=== PATIENT | male | born 1980 | race Caucasian/White ===

== ENCOUNTER 2020-03-11 22:04 | Emergency (ER) | payer MEDICAID, SELFPAY ==
[2020-03-11 22:06] VITALS: BP 134/82; PULSE 103; RESP 20; TEMP 36.6; O2SAT 95
--- NOTE | 2020-03-11 22:08 | W.ED.GENAD ---
Discharge Plan Disposition Patient Disposition: HOME Condition: Good Discharge Details Chief Complaint: Cellulitis Clinical Impression: Wound infection, posttraumatic Primary Care Provider: None,None ED Provider: Booker Lopez Meds and New Rx's Prescriptions: New cephalexin 500 mg tablet 500 mg PO Q8H Qty: 20 RF: 0 Discharge Instructions Instructions: Wound Infection (ED) Additional Instructions: Continue to keep wound clean and dry. Antibiotic as directed. Acetaminophen or ibuprofen as needed. Should be better in a couple of days but be sure to finish your antibiotic. Return to the if continued worsening of pain, swelling, redness, fever. Referrals: Primary Care Provider [Outside] Medical Decision Making Patient with an infected abrasion. No evidence of joint involvement. No bony tenderness. Will start on cephalexin. Continue good wound care. Return to ED for worsening infection otherwise follow-up with primary care if not improving next week. HPI General Mode of arrival: ambulatory. Date/Time Provider Initiated Documentation: 03/11/20 22:08. Limitations to Documentation: no limitations. Information obtained by: patient and RN notes reviewed. HPI Narrative: Patient presents to ED with increasing redness and swelling to a scrape he sustained to his left elbow a few days ago. He denies any fever. He has normal range of motion and strength. He has been cleaning the wound and keeping it covered but it is become red and swollen and more painful. Related Data Home Medications Medication Instructions Recorded Confirmed cephalexin 500 mg PO Q8H #20 tab 03/11/20 Previous Rx's Medication Instructions Recorded cephalexin 500 mg PO Q8H #20 tab 03/11/20 Allergies Allergy/AdvReac Type Severity Reaction Status Date / Time No Known Allergies Allergy Unverified 03/11/20 22:09 Review of Systems Constitutional Constitutional: Denies fever(s) Cardiovascular Cardiovascular: Denies dyspnea Respiratory Respiratory: Denies cough and Denies dyspnea Musculoskeletal Musculoskeletal: Denies arthralgias and Denies limited range of motion Integumentary/Breasts Skin/Breast: Reports erythema and Reports wounds [facility] Medical History No active medical problems (Acute) Surgical History No significant past surgical history (Acute) Social History Smoking/Tobacco Use Status: Current every day Tobacco Type: cigarettes Alcohol Intake: never Drug use: Never Substance use type: does not use Do you feel safe at home: Yes Do you feel safe in your relationship?: Yes Exam Const General: cooperative, comfortable and no acute distress Orientation: alert and oriented x3 Resp Effort & Inspection: normal respiratory effort Skin Trauma: abrasion (1 x 4 cm abrasion over left elbow) Other: Surrounding erythema and swelling around abrasion. Warm to touch. Minor tenderness. Extrem Left upper extremity: full ROM, no joint enlargement and elbow/forearm Details: normal ROM
== END 2020-03-11 22:30 | disposition home or self-care (01) ==
LOC: ER 22:23
PROVIDERS: Emergency Provider Emergency Medicine
DX: S50.312A Abrasion of left elbow, initial encounter (principal); L08.9 Local infection of the skin and subcutaneous tissue, unspecified; X58.XXXA Exposure to other specified factors, initial encounter
CPT/HCPCS: 99283

== ENCOUNTER 2023-05-04 02:14 | Emergency (ER) | payer MEDICAID, SELFPAY ==
[2023-05-04] VITALS (8 sets, daily range): BP systolic 147–165; BP diastolic 58–136; PULSE 103–110; RESP 18; TEMP 37.1–37.3; O2SAT 96–99
--- NOTE | 2023-05-04 03:17 | ED.GENADUL_ITS ---
Discharge Plan Disposition Patient Disposition: Home Discharge Details Clinical Impression: Otitis media of both ears Primary Care Provider: None,None ED Provider: Gisselle Josue Home Meds and New Rx's Prescriptions: New amoxicillin 500 mg capsule 500 mg PO TID Qty: 30 0RF Discontinued cephalexin 500 mg tablet 500 mg PO Q8H Qty: 20 0RF Discharge Instructions Instructions: Ear Infection (ED) Additional Instructions: Try the amoxicillin to see if your hearing and the ringing in your ears improves (this may help your throat as well). We will have primary care call you for a follow up appt. It is possible that the ear issue is related to your recent bout of Covid. Return to ED for difficulty breathing, chest pain, inability to swallow, any other concerns. Tylenol and/or ibuprofen as needed for pain. Discharge Data Discharge Date/Time-TO BE ENTERED AT DEPARTURE: 05/04/23 03:41 Medical Decision Making Patient was extremely fidgety when his blood pressure was being taken and had a hard time sitting still. I suspect the initial read was not accurate. He was mildly tachycardic with a temp of 99.1 just prior to discharge. I suspect he may have a fever. I gave him amoxicillin which should treat bacterial pharyngitis and otitis media. We also talked about some of the odd symptoms that persist after COVID-19. It is possible that his tinnitus and decreased hearing are related to the COVID. Patient does not have a primary care doc and I will have primary care call him for follow-up appointment. He will return to the ER for difficulty breathing, chest pain, or any other concerns. Medical Records Medical records reviewed: Yes I reviewed the patient's medical records. HPI General Date/Time Provider Initiated Documentation: 05/04/23 03:16 . HPI Narrative: This 42-year-old male patient presents with a chief complaint of bilateral ear pain, ringing, and sore throat. Patient states that a month or so ago he had COVID-19. He states that a week after this he began having tinnitus and decreased hearing. He denies dizziness or vertigo. Over the past day or 2 he has also had a sore throat and feels more pain in his ears. He feels like he has phlegm in his throat at times. He denies fever, cough, or other URI symptoms. He does not have swollen glands. There is no chest pain or difficulty breathing. Related Data Home Medications Medication Instructions Recorded Confirmed amoxicillin 500 mg capsule 500 mg PO TID #30 caps 05/04/23 Previous Rx's Medication Instructions Recorded amoxicillin 500 mg capsule 500 mg PO TID #30 caps 05/04/23 Allergies Allergy/AdvReac Type Severity Reaction Status Date / Time No Known Allergies Allergy Unverified 03/11/20 22:09 General Stated Complaint: EarProblem CELESTINA: 4 Review of Systems Constitutional Constitutional: Denies chills, Denies fever(s), Denies headache(s) and Denies weakness Eyes Eyes: Denies diplopia and Reports other (no redness) ENT Ears, Nose, Mouth, and Throat: Denies vertigo, Denies dizziness, Reports otalgia, Denies headache(s), Denies nasal congestion, Denies nasal discharge, Denies neck pain and Reports sore throat Cardiovascular Cardiovascular: Denies chest pain, Denies palpitations and Denies dyspnea Respiratory Respiratory: Denies cough and Denies dyspnea Gastrointestinal Gastrointestinal: Denies abdominal pain, Denies diarrhea, Denies nausea and Denies vomiting Genitourinary Genitourinary: Denies difficulty urinating and Denies dysuria Musculoskeletal Musculoskeletal: Denies myalgias, Denies muscle weakness, Denies neck pain, Denies numbness and Reports other (edema) Integumentary/Breasts Skin/Breast: Denies change in pigmentation and Denies rash Neurologic Neurologic: Denies vertigo, Denies dizziness, Denies headache(s), Denies numbness and Denies weakness Endocrine Endocrine: Denies palpitations PFSH All Active Problems Otitis media of both ears (Acute) Medical History No active medical problems Surgical History No significant past surgical history Social History Smoking/Tobacco Use Status: Current every day Tobacco Type: cigarettes Smoking risk assessment performed?: Yes Alcohol Intake: never Drug use: Never Substance use type: does not use Do you feel safe at home: Yes Do you feel safe in your relationship?: Yes Exam Const General: no acute distress, well developed, well groomed and not in acute distress Nutritional Appearance: well nourished Orientation: alert and oriented x3 HENMT Head: normocephalic and atraumatic Ears: external ears normal, TM's abnormal bilaterally (B TMs dull with no light relex) and other (no pain with pinna traction) Mouth: oropharynx normal and moist mucous membranes Throat: posterior oropharynx abnormal (erythematous but no exudate) Eyes Conjunctivae: conjunctivae normal Neck Neck: full ROM, supple and no lymphadenopathy noted Chest Chest: normal inspection of the chest Resp Effort & Inspection: normal respiratory effort Auscultation: clear to auscultation bilaterally Cardio Rate: regular rate Rhythm: regular rhythm Heart Sounds: no murmurs and no rubs GI Inspection: normal to inspection and obesity Palpation: soft, nontender and other (non distended) Auscultation: normal bowel sounds Skin General skin exam: no rashes or lesions noted and other (pink, warm, dry) Neuro General: patient alert, patient awake and patient oriented x3 Speech: speech normal Motor: other (HERNANDEZ) Sensory Exam: no sensory deficits noted Extrem General: normal to inspection, full ROM and pedal edema present Psych Mental Status: mental status grossly normal Speech and Movement: speech and movement normal Affect: normal affect Course Vital Signs Vital signs: Vital Signs Temperature 37.1 C 05/04/23 02:23 Pulse 110 H 05/04/23 02:23 Respiratory Rate 18 05/04/23 02:23 Blood Pressure 165/136 H 05/04/23 02:23 Pulse Oximetry 96 05/04/23 02:23 Temperature 37.1 C 05/04/23 02:23 Pulse 110 H 05/04/23 02:23 Respiratory Rate 18 05/04/23 02:23 Respiratory Effort Normal 05/04/23 02:26 Blood Pressure 165/136 H 05/04/23 02:23 Blood Pressure Position Sitting 05/04/23 02:23 Pulse Oximetry 96 05/04/23 02:23 Pain Level 5 05/04/23 02:23
[2023-05-04] MEDS: Amoxicillin 500 MG CAP PO (03:25)
== END 2023-05-04 03:41 | disposition home or self-care (01) ==
PROVIDERS: Emergency Provider Emergency Medicine
DX: H66.93 Otitis media, unspecified, bilateral (principal)
CPT/HCPCS: 99283; 99284

== ENCOUNTER 2024-06-28 20:27 | Inpatient (IN) | payer MEDICAID, SELFPAY ==
[2024-06-28] VITALS (17 sets, daily range): BP systolic 97–150; BP diastolic 50–90; PULSE 91–166; RESP 16–24; TEMP 36.6; O2SAT 86–98
--- NOTE | 2024-06-28 20:15 | RT.EKG_ITS ---
APPROVED REPORT Exam: Resting ECG Reason for Exam: OD Patient Location: E HR:116 bpm ECG Measurements Heart Rate 116 AXIS FL [id number] P [id number] QRSd 99 QRS 62 QT 330 T 13 QTc 460 Conclusion Atrial fibrillation...? atrial activity no ST segment or T wave abnormalitites to suggest occlusive AL
[2024-06-28 20:44] LABS: Abs Immature Grans 0.17 10^3/uL (0.0-0.06); BE (Venous) -2 mmol/L (-2-3); HCO3 (Venous) 26 mmol/L (23-28); HCT 45.2 % (40.0-50.0); HGB 14.6 g/dL (13.5-17.5); MCH 28.5 pg (27.0-33.0); MCHC 32.3 % (32.0-36.0); MCV 88 fL (80-95); O2 Sat (Venous) 33 %; Platelet Count 293 10^3/uL (130-400); RBC 5.13 10^6/uL (4.36-5.78); RDW 14.4 % (11.8-14.1); RDW-SD 46.6 fL; TCO2 (Venous) 24 mmol/L (24-29); WBC 24.99 10^3/uL (4.4-10.8); pCO2 (Venous) 59 mmHg (41-51); pH (Venous) 7.25 (7.31-7.41); pO2 (Venous) 21 mmHg
[2024-06-28 20:52] LABS: Absolute Lymphocyte Count 2.25 10^3/uL (1.2-3.4); Absolute Neutrophil Count 21.99 10^3/uL (1.2-6.7); Bands % 2 %
[2024-06-28 20:53] LABS: Absolute Monocyte Count 0.75 10^3/uL (0.1-0.8); Diff Comment Manual Differential; RBC Morphology Normal
[2024-06-28 21:05] LABS: PTT Activated 29.6 sec (23.6-32.8); Prothrombin Time 10.3 sec (9.1-11.1)
[2024-06-28] MEDS: Ondansetron 4 MG/2 ML VIAL IVP (21:10)
[2024-06-28 21:16] LABS: ALT 44 U/L (16-63); AST 25 U/L (15-37); Albumin 3.5 g/dL (3.4-5.0); Alkaline Phosphatase 157 U/L (46-116); Anion Gap 9.4 mmol/L (3-11); BUN 16 mg/dL (7-18); Bilirubin, Total 0.13 mg/dL (0.2-1.0); CO2 28.6 mmol/L (21.0-32.0); CREATININE 1.5 mg/dL (0.70-1.30); Chloride 107 mmol/L (98-107); Estimated GFR 59.61 (mL/min/1.73m2); Glucose 132 mg/dL (74-106); NT-proBNP 119 pg/mL (<300); Potassium 5.3 mmol/L (3.5-5.1); Sodium 145 mmol/L (136-145); TSH (W/Ref FT4) 1.77 uIU/mL (0.36-3.74); Total Protein 7.8 g/dL (6.4-8.2); Troponin I 41 ng/L (<or=76)
[2024-06-28 21:24] LABS: D-Dimer 536 ng/mlFEU (<500)
--- NOTE | 2024-06-28 21:27 | NUR.NOTE ---
Nursing Note: Pt SpO2 ~90% on RA. Placed on 3L NC.
[2024-06-28 21:36] LABS: *AMPHETAMINES SCREEN URINE Negative (Negative); *BENZODIAZEPINES SCREEN URINE Positive (Negative); Cocaine Screen,Urine Positive (Negative)
[2024-06-28 21:37] LABS: *BARBITURATES SCREEN URINE Negative (Negative); Cannabinoids THC Positive (Negative); OPIATES URINE SCREEN Negative (Negative); Tricyclic Antidepressants Negative (Negative)
--- NOTE | 2024-06-28 22:02 | DI.RAD_ITS ---
Exam(s) XR CHEST 2V PA LATERAL EXAM: XR CHEST 2V PA LATERAL CLINICAL HISTORY: afib TECHNIQUE: 2D digital imaging was performed. Two views. COMPARISON: No exams were available for comparison FINDINGS: Exam is limited by under penetration. HEART: normal size. Aorta: Not dilated. PULMONARY VASCULATURE: Normal. MEDIASTINUM: Unremarkable. LUNGS: Clear. PLEURAL SPACE: No pleural effusion or pneumothorax. BONE:Unremarkable for age. SOFT TISSUES: Unremarkable. IMPRESSION: No acute abnormality. DATA REPOSITORY: RADIATION DOSE DELIVERED:
[2024-06-28] MEDS: Omnipaque 350 MG/ML 100 ML BTL 90 ML IJ (22:23)
[2024-06-28] MEDS: Normal Saline - Diluent 50 ML VIAL IJ (22:24)
--- NOTE | 2024-06-28 22:25 | DI.CT_ITS ---
Exam(s) CT CHEST PE CTA EXAM: CT CHEST PE CTA CLINICAL HISTORY: hypoxia, tachycardia afib, + dimer. TECHNIQUE: Imaging Protocol: Axial CT angiography was performed with multi-slice acquisition and mu lti-planar reconstructions as well as axial, coronal and sagittal MIP reconstructions. Computer aided detection (CAD) was utilized. CONTRAST MATERIAL: Intravenous: Omnipaque 350 Contrast volume:90 ml COMPARISON: CR,XR XR CHEST 2V PA LATERAL from 06/28/2024 FINDINGS: Exam limited by image noise secondary check to technique and patient body habitus. Pulmonary Arteries: No evidence of filling defect to suggest pulmonary emboli. Mediastinum and Olamide: Mildly enlarged, reactive lymph nodes in the subcarinal region. Pulmonary parenchyma: Bilateral upper and lower lobe patchy nodular infiltrates, greatest at the righ t upper and right lower lobe. No dominant measurable mass. Pleura: No effusion or pneumothorax. Heart: The heart is not dilated. No coronary artery calcifications are seen. Aorta: Thoracic aorta non-dilated. No dissection. Upper abdomen: Celiac axis lymph node measuring 1.2 cm in maximal dimension. Bones: Prominent calcification in the anterior longitudinal ligament in the lower thoracic region. M ild degenerative disc changes. Tubes, Catheters, and Lines: None Soft tissues: Unremarkable. IMPRESSION: Bilateral bronchopneumonia, right greater than left. No evidence of pulmonary emboli. RADIATION DOSE DELIVERED: Total DLP DATA REPOSITORY: All CT scans at this facility are submitted to the National Radiology Data Registry (NRDR) Dose Index Registry (DIR) with the [employer] (A[employer]). RADIATION OPTIMIZATION: All CT scans at this facility use at least one of these dose optimization te chniques: automated exposure control; mA and/or kV adjustment per patient size (includes targeted exa ms where dose is matched to clinical indication); or iterative reconstruction.
[2024-06-28 22:26] LABS: Troponin I 105 ng/L (<or=76)
--- NOTE | 2024-06-28 23:02 | ED.GENADUL_ITS ---
Discharge Plan Disposition Patient Disposition: Admit to [facility] Condition: Good Discharge Details Chief Complaint: OD/Poison Clinical Impression: Acute hypoxic respiratory failure, Pneumonia, A-fib, Non-ST elevation MT (NSTEMI), Overdose, Sepsis Primary Care Provider: None,None ED Provider: Viki Allen Home Meds and New Rx's Prescriptions: No Action No Known Home Meds HPI General Mode of arrival: EMS . Date/Time Provider Initiated Documentation: 06/28/24 20:34 . Limitations to Documentation: no limitations . Information obtained by: patient, family and EMS . HPI Narrative: 43yo M with no prior medical history presenting via EMS for unresponsiveness. reports that patient was napping,then began snoring loudly and breathing abnormally and she could not wake him up despite slapping him so she called EMS. Somonlent with sonorous respirations on EMS arrival, given a total of 8mg Narcan with improvement in mental and respiratory status. To EMS pt reported taking 1 percocet, to nursing staff on arrival denies any ingestions, to me states 'maybe a bunch' of percocet. Patient states he feels 'shitty' now, slightly nausated. No chest pain, shortness of breath, or lightheadedness. Otherwise in his usual state of health with no fevers, chills, vomiting, abdominal pain, numbness, tingling, weakness, vision changes, or other concerns. Related Data Home Medications ?Medication ?Instructions ?Recorded ?Confirmed Unknown [No Known Home Meds] 06/28/24 06/28/24 Allergies Allergy/AdvReac Type Severity Reaction Status Date / Time No Known Allergies Allergy Unverified 06/28/24 20:32 General Stated Complaint: OD/Poison CELESTINA: 3 Review of Systems Narrative: see HPI Exam Narrative Exam Narrative: General: Alert, well appearing, well nourished, in no acute distress. Head: Normocephalic, atraumatic Neck: Trachea midline, ?Neck supple. ENT: ?MMM.? No oropharygeal lesions or exudate. Cardiac: ?Irregular, no murmurs appreciated Resp: No respiratory distress. CTAB. Abd: ?Soft, non-distended, nontender Extremities: ?No deformities.? No peripheral edema. Neuro: ? GCS 15.? PERRL, miosis. ? EOMI.? Fluent speech, no dysarthria. Motor- 5/5 strength symmetric bilateral upper and lower extremities Sensation- ?Intact to light touch and symmetric multiple dermatomes including upper and lower extremities Coordination- No dysmetria on finger to nose CRANIAL NERVES: II: Pupils equal and reactive, III, IV, : EOM intact, no gaze preference or deviation, no nystagmus. V: normal sensation in V1, V2, and V3 segments bilaterally VII: no asymmetry, no nasolabial fold flattening VIII: normal hearing to speech IX, X: normal palatal elevation, no uvular deviation XI: 5/5 head turn and 5/5 shoulder shrug bilaterally XII: midline tongue protrusion Course Vital Signs Vital signs: Vital Signs Temperature 36.6 C 06/28/24 20:27 Pulse 125 H 06/28/24 20:27 Respiratory Rate 24 06/28/24 20:27 Blood Pressure 150/89 H 06/28/24 20:27 Pulse Oximetry 91 L 06/28/24 20:27 Temperature 36.6 C 06/28/24 20:27 Temperature Source Temporal Artery Scan 06/28/24 20:27 Pulse 100 H 06/28/24 23:00 Pulse 99 H 06/28/24 23:00 Respiratory Rate 22 06/28/24 23:00 Respiratory Effort Normal, Non-Labored 06/28/24 20:36 Respiratory Depth Normal 06/28/24 20:36 Respiratory Pattern Normal 06/28/24 20:36 Blood Pressure 107/66 06/28/24 23:00 Blood Pressure Mean 79 06/28/24 23:00 Blood Pressure Position Supine 06/28/24 20:27 Pulse Oximetry 93 06/28/24 23:00 Respiratory End-tidal CO2 51 06/28/24 23:00 Oxygen Delivery Method Nasal Cannula 06/28/24 20:32 Oxygen Flow Rate 2 06/28/24 20:32 Pain Level 0 06/28/24 20:27 Comment 4L NC 06/28/24 22:46 Lab/Test Results Lab/Test Results: Laboratory Tests Range/Units 06/28/24 06/28/24 06/28/24 20:33 20:33 20:33 WBC (4.4-10.8) 10^3/uL 24.99 H RBC (4.36-5.78) 10^6/uL 5.13 Hgb (13.5-17.5) g/dL 14.6 Hct (40.0-50.0) % 45.2 MCV (80-95) fL 88 MCH (27.0-33.0) pg 28.5 MCHC (32.0-36.0) % 32.3 RDW (11.8-14.1) % 14.4 H Plt Count (130-400) 10^3/uL 293 MPV (8.0-11.0) fL 10.0 Immature Gran % % 0.0 Neutrophils % % 86.0 Band Neutrophils % % 2 Lymphocytes % % 9.0 Monocytes % % 3.0 Eosinophils % % 0.0 Basophils % % 0.0 Nucleated RBC % (0.0-0.3) % 0.0 Absolute Neutrophils (1.2-6.7) 10^3/uL 21.99 H Absolute Lymphocytes (1.2-3.4) 10^3/uL 2.25 Absolute Monocytes (0.1-0.8) 10^3/uL 0.75 Absolute Eosinophils (0.0-0.7) 10^3/uL 0.00 Absolute Basophils (0.0-0.2) 10^3/uL 0.00 RBC Morphology Normal PT (9.1-11.1) sec 10.3 INR (0.9-1.1) 1.0 APTT (23.6-32.8) sec 29.6 D-Dimer (<500) ng/mlFEU 536 H VBG pH (7.31-7.41) 7.25 L VBG pCO2 (41-51) mmHg 59 H VBG pO2 mmHg 21 VBG HCO3 (23-28) mmol/L 26 VBG Total CO2 (24-29) mmol/L 24 VBG O2 Saturation % 33 VBG Base Excess (-2-3) mmol/L -2 Sodium (136-145) mmol/L 145 Potassium (3.5-5.1) mmol/L 5.3 H Chloride (98-107) mmol/L 107 Carbon Dioxide (21.0-32.0) mmol/L 28.6 Anion Gap (3-11) mmol/L 9.4 BUN (7-18) mg/dL 16 Creatinine (0.70-1.30) mg/dL 1.5 H Est GFR (CKD-EPI 2020) (mL/min/1.73m2) 59.61 Glucose (74-106) mg/dL 132 H Calcium (8.5-10.1) mg/dL 9.0 Total Bilirubin (0.2-1.0) mg/dL 0.13 L AST (15-37) U/L 25 ALT (16-63) U/L 44 Alkaline Phosphatase (46-116) U/L 157 H Troponin I (<or=76) ng/L 41 Cancelled NT-Pro-B Natriuret Pep (<300) pg/mL 119 Cancelled Total Protein (6.4-8.2) g/dL 7.8 Albumin (3.4-5.0) g/dL 3.5 TSH (0.36-3.74) uIU/mL 1.77 Urine Opiates Screen (Negative) Ur Barbiturates Screen (Negative) Ur Tricyclics Screen (Negative) Ur Amphetamines Screen (Negative) U Benzodiazepines Scrn (Negative) Urine Cocaine Screen (Negative) Ur THC Screen (Negative) Range/Units 06/28/24 06/28/24 06/28/24 20:33 20:57 21:59 WBC (4.4-10.8) 10^3/uL RBC (4.36-5.78) 10^6/uL Hgb (13.5-17.5) g/dL Hct (40.0-50.0) % MCV (80-95) fL MCH (27.0-33.0) pg MCHC (32.0-36.0) % RDW (11.8-14.1) % Plt Count (130-400) 10^3/uL MPV (8.0-11.0) fL Immature Gran % % Neutrophils % % Band Neutrophils % % Lymphocytes % % Monocytes % % Eosinophils % % Basophils % % Nucleated RBC % (0.0-0.3) % Absolute Neutrophils (1.2-6.7) 10^3/uL Absolute Lymphocytes (1.2-3.4) 10^3/uL Absolute Monocytes (0.1-0.8) 10^3/uL Absolute Eosinophils (0.0-0.7) 10^3/uL Absolute Basophils (0.0-0.2) 10^3/uL RBC Morphology PT (9.1-11.1) sec INR (0.9-1.1) APTT (23.6-32.8) sec D-Dimer (<500) ng/mlFEU VBG pH (7.31-7.41) VBG pCO2 (41-51) mmHg VBG pO2 mmHg VBG HCO3 (23-28) mmol/L VBG Total CO2 (24-29) mmol/L VBG O2 Saturation % VBG Base Excess (-2-3) mmol/L Sodium (136-145) mmol/L Potassium (3.5-5.1) mmol/L Chloride (98-107) mmol/L Carbon Dioxide (21.0-32.0) mmol/L Anion Gap (3-11) mmol/L BUN (7-18) mg/dL Creatinine (0.70-1.30) mg/dL Est GFR (CKD-EPI 2020) (mL/min/1.73m2) Glucose (74-106) mg/dL Calcium (8.5-10.1) mg/dL Total Bilirubin (0.2-1.0) mg/dL AST (15-37) U/L ALT (16-63) U/L Alkaline Phosphatase (46-116) U/L Troponin I (<or=76) ng/L 105 H* NT-Pro-B Natriuret Pep (<300) pg/mL Total Protein (6.4-8.2) g/dL Albumin (3.4-5.0) g/dL TSH (0.36-3.74) uIU/mL Cancelled Urine Opiates Screen (Negative) Negative Ur Barbiturates Screen (Negative) Negative Ur Tricyclics Screen (Negative) Negative Ur Amphetamines Screen (Negative) Negative U Benzodiazepines Scrn (Negative) Positive A Urine Cocaine Screen (Negative) Positive A Ur THC Screen (Negative) Positive A Medical Decision Making 43yo M with no prior medical history presenting via EMS for unresponsiveness. Somonlent with sonorous respirations for EMS, improved after 8mg narcan. Alert on arrival, tachycardiac to 120's with irregular rhythm, borderline hypoxia with O2 sat 91% on room air. Placed on O2 via NC. EKG with afib, rate 110's, no ST segment or T wave abnormalities to suggest occlusive MT. Pt variably admits or denies opiate use, does present as likely OD responsive to narcan. Will workup new afib with labs. Labs reviewed as below- -CBC with marked leukocytosis to 25 (nonspecific) and no anemia. No infectious symptoms or overt infection on exam, would not treat as septic at this time. - CMP with hyperkalemia at 5.3 (no hyperkalemic EKG changes) and Cr of 1.5 (unknown baseline), TSH normal, coags normal, VBG with respiratory acidosis consistent with overdose/hypoventilation. BNP normal, initial troponin negative. Dimer elevated; in the setting of new afib/hypoxia must consider PE and so CTA ordered. On reassessment patient again somewhat somnolent, sonorous respirations, arouses to noxious stimuli. Given 2mg IV narcan here with immediate improvement in mental status and respiratory effort, afterwards mildly agitated with nasuea and vomited x 1. Transiently tachycardiac to 140's-150's during this event. CTA independently reviewed; no large saddle embolus on my view, agree with radiology read below with bronchopenumonia. Will treat with IV ceftriaxone, azithromycin, IVFB, and send lactate. On reassessment patient requiring 3-4L NC to maintain oxygen saturation greater than 92%; desats to high 80's within 1 minute of trial on room air. HR now 90's, SR on the monitor. 1 hour troponin elevated at ~100, likely [id number]. Mg and lactate pending. Discussed with [facility] hospitalist, accepted to medicine service. Awaiting admission orders and transfer to the floor. Imaging Data Radiologic Study: Imaging: CT Scan Radiologist's impression: IMPRESSION: 1. There is extensive diffuse bilateral infectious bronchiolitis and bronchopneumonia. 2. Enlarged 1.2 cm celiac axis lymph node. Lab Data Lab results reviewed: Yes I reviewed the patient's lab results. Labs: Laboratory Tests Range/Units 06/28/24 06/28/24 06/28/24 20:33 20:33 20:33 WBC (4.4-10.8) 10^3/uL 24.99 H RBC (4.36-5.78) 10^6/uL 5.13 Hgb (13.5-17.5) g/dL 14.6 Hct (40.0-50.0) % 45.2 MCV (80-95) fL 88 MCH (27.0-33.0) pg 28.5 MCHC (32.0-36.0) % 32.3 RDW (11.8-14.1) % 14.4 H Plt Count (130-400) 10^3/uL 293 MPV (8.0-11.0) fL 10.0 Immature Gran % % 0.0 Neutrophils % % 86.0 Band Neutrophils % % 2 Lymphocytes % % 9.0 Monocytes % % 3.0 Eosinophils % % 0.0 Basophils % % 0.0 Nucleated RBC % (0.0-0.3) % 0.0 Absolute Neutrophils (1.2-6.7) 10^3/uL 21.99 H Absolute Lymphocytes (1.2-3.4) 10^3/uL 2.25 Absolute Monocytes (0.1-0.8) 10^3/uL 0.75 Absolute Eosinophils (0.0-0.7) 10^3/uL 0.00 Absolute Basophils (0.0-0.2) 10^3/uL 0.00 RBC Morphology Normal PT (9.1-11.1) sec 10.3 INR (0.9-1.1) 1.0 APTT (23.6-32.8) sec 29.6 D-Dimer (<500) ng/mlFEU 536 H VBG pH (7.31-7.41) 7.25 L VBG pCO2 (41-51) mmHg 59 H VBG pO2 mmHg 21 VBG HCO3 (23-28) mmol/L 26 VBG Total CO2 (24-29) mmol/L 24 VBG O2 Saturation % 33 VBG Base Excess (-2-3) mmol/L -2 Sodium (136-145) mmol/L 145 Potassium (3.5-5.1) mmol/L 5.3 H Chloride (98-107) mmol/L 107 Carbon Dioxide (21.0-32.0) mmol/L 28.6 Anion Gap (3-11) mmol/L 9.4 BUN (7-18) mg/dL 16 Creatinine (0.70-1.30) mg/dL 1.5 H Est GFR (CKD-EPI 2020) (mL/min/1.73m2) 59.61 Glucose (74-106) mg/dL 132 H Calcium (8.5-10.1) mg/dL 9.0 Total Bilirubin (0.2-1.0) mg/dL 0.13 L AST (15-37) U/L 25 ALT (16-63) U/L 44 Alkaline Phosphatase (46-116) U/L 157 H Troponin I (<or=76) ng/L 41 Cancelled NT-Pro-B Natriuret Pep (<300) pg/mL 119 Cancelled Total Protein (6.4-8.2) g/dL 7.8 Albumin (3.4-5.0) g/dL 3.5 TSH (0.36-3.74) uIU/mL 1.77 Urine Opiates Screen (Negative) Ur Barbiturates Screen (Negative) Ur Tricyclics Screen (Negative) Ur Amphetamines Screen (Negative) U Benzodiazepines Scrn (Negative) Urine Cocaine Screen (Negative) Ur THC Screen (Negative) Range/Units 06/28/24 06/28/24 06/28/24 20:33 20:57 21:59 WBC (4.4-10.8) 10^3/uL RBC (4.36-5.78) 10^6/uL Hgb (13.5-17.5) g/dL Hct (40.0-50.0) % MCV (80-95) fL MCH (27.0-33.0) pg MCHC (32.0-36.0) % RDW (11.8-14.1) % Plt Count (130-400) 10^3/uL MPV (8.0-11.0) fL Immature Gran % % Neutrophils % % Band Neutrophils % % Lymphocytes % % Monocytes % % Eosinophils % % Basophils % % Nucleated RBC % (0.0-0.3) % Absolute Neutrophils (1.2-6.7) 10^3/uL Absolute Lymphocytes (1.2-3.4) 10^3/uL Absolute Monocytes (0.1-0.8) 10^3/uL Absolute Eosinophils (0.0-0.7) 10^3/uL Absolute Basophils (0.0-0.2) 10^3/uL RBC Morphology PT (9.1-11.1) sec INR (0.9-1.1) APTT (23.6-32.8) sec D-Dimer (<500) ng/mlFEU VBG pH (7.31-7.41) VBG pCO2 (41-51) mmHg VBG pO2 mmHg VBG HCO3 (23-28) mmol/L VBG Total CO2 (24-29) mmol/L VBG O2 Saturation % VBG Base Excess (-2-3) mmol/L Sodium (136-145) mmol/L Potassium (3.5-5.1) mmol/L Chloride (98-107) mmol/L Carbon Dioxide (21.0-32.0) mmol/L Anion Gap (3-11) mmol/L BUN (7-18) mg/dL Creatinine (0.70-1.30) mg/dL Est GFR (CKD-EPI 2020) (mL/min/1.73m2) Glucose (74-106) mg/dL Calcium (8.5-10.1) mg/dL Total Bilirubin (0.2-1.0) mg/dL AST (15-37) U/L ALT (16-63) U/L Alkaline Phosphatase (46-116) U/L Troponin I (<or=76) ng/L 105 H* NT-Pro-B Natriuret Pep (<300) pg/mL Total Protein (6.4-8.2) g/dL Albumin (3.4-5.0) g/dL TSH (0.36-3.74) uIU/mL Cancelled Urine Opiates Screen (Negative) Negative Ur Barbiturates Screen (Negative) Negative Ur Tricyclics Screen (Negative) Negative Ur Amphetamines Screen (Negative) Negative U Benzodiazepines Scrn (Negative) Positive A Urine Cocaine Screen (Negative) Positive A Ur THC Screen (Negative) Positive A Quality:SDOH Health Related Social Needs: No Data to Display PFSH All Active Problems (Updated 06/29/24 @ 00:01 by Viki Allen MD) Sepsis (Acute) Overdose (Acute) Non-ST elevation MT (NSTEMI) (Acute) A-fib (Chronic) Pneumonia (Acute) Acute hypoxic respiratory failure (Acute) Opioid overdose (Acute) Acute dehydration (Acute) Elevated troponin level not due to acute coronary syndrome (Acute) Atrial fibrillation with controlled ventricular rate (Acute) Pneumonia (Acute) Medical History (Updated 06/29/24 @ 00:01 by Viki Allen MD) No active medical problems Surgical History No significant past surgical history Social History Smoking/Tobacco Use Status: Current every day Tobacco Type: cigarettes Smoking risk assessment performed?: Yes Alcohol Intake: never Drug use: Daily Substance use type: painkillers Details: pt states only uses percocet Do you feel safe at home: Yes Do you feel safe in your relationship?: Yes
--- NOTE | 2024-06-28 23:20 | DI.VRAD_ITS ---
Addendum created by Jose Narvaez MD on 06/28/2024 11:30:59 PM EST: In retrospect, after reviewing the chest CT, there are some subtle areas on the chest radiograph which demonstrates some indistinctness of the normal pulmonary vasculature, related to infectious bronchiolitis. Initial report created on 06/28/2024 11:20:16 PM EST: PROCEDURE INFORMATION: Exam: XR Chest Exam date and time: 06/28/2024 9:51 PM Age: 43 years old Clinical indication: Other: Afib TECHNIQUE: Imaging protocol: Radiologic exam of the chest. Views: 2 views. COMPARISON: No relevant prior studies available. FINDINGS: Lungs: Low lung volumes. Lungs are clear. Pleural spaces: Unremarkable. No pleural effusion. No pneumothorax. Heart/Mediastinum: Unremarkable. No cardiomegaly. Bones/joints: Unremarkable. IMPRESSION: No acute findings. Dictated and Authenticated by: Jose Narvaez MD. Ordering:DAVID Drew MD
--- NOTE | 2024-06-28 23:29 | DI.VRAD_ITS ---
PROCEDURE INFORMATION: Exam: CTA Chest With Contrast Exam date and time: 06/28/2024 10:08 PM Age: 43 years old Clinical indication: Other: Hypoxia, tachycardia afib, +dimer TECHNIQUE: Imaging protocol: Computed tomographic angiography of the chest with contrast. Exam focused on the arteries. 3D rendering (Not supervised by radiologist): MIP and/or 3D reconstructed images were created by the technologist. Radiation optimization: All CT scans at this facility use at least one of these dose optimization techniques: automated exposure control; mA and/or kV adjustment per patient size (includes targeted exams where dose is matched to clinical indication); or iterative reconstruction. Contrast material: [id number]; Contrast volume: 90 ml; Contrast route: INTRAVENOUS (IV); COMPARISON: CR XR CHEST 2V PA LATERAL 06/28/2024 9:51 PM FINDINGS: Pulmonary arteries: Normal. No pulmonary emboli. Aorta: Unremarkable. No aortic aneurysm. No aortic dissection. Celiac trunk and mesenteric arteries: Enlarged 1.2 cm celiac axis lymph node. Lungs: There is extensive diffuse bilateral infectious bronchiolitis and bronchopneumonia. Pleural spaces: Unremarkable. No pneumothorax. No pleural effusion. Heart: Unremarkable. No pericardial effusion. Esophagus: Unremarkable. Lymph nodes: See Celiac trunk and mesenteric arteries finding. Bones/joints: Unremarkable. No acute fracture. Soft tissues: Unremarkable. IMPRESSION: 1. There is extensive diffuse bilateral infectious bronchiolitis and bronchopneumonia. 2. Enlarged 1.2 cm celiac axis lymph node. Dictated and Authenticated by: Jose Narvaez MD. Ordering:DAVID Drew MD
--- NOTE | 2024-06-28 23:41 | HPE_ITS ---
Date of service: 06/28/24 Time of Service: 23:41 Assessment and Plan Assessment and plan (1) Pneumonia: Start date: 06/28/24 Status: Acute Assessment and plan: This is a 43-year-old gentleman who presented with probable opioid overdose and respiratory suppression with slight elevation of his pCO2. Patient was never hypoxic but is on oxygen supplementation. He presently is improved and awake not requiring Narcan on continuous capnography. He does continue to be slightly drowsy and unsteady and will have assistance in ambulation. He is anxious about the episode and said that he will be stopping drugs. CT did show bilateral bronchopneumonia or bronchiolitis and he is on treatment for outpatient pneumonia with iv Rocephin and Zithromax. Continue cardiac monitoring and pulse oximeter with capnography until patient is fully awake and more stable. He appears slightly drowsy presently. He is a full code. (2) Atrial fibrillation with controlled ventricular rate: Start date: 06/28/24 Status: Acute Assessment and plan: Transient with the patient's acute presentation and now back in sinus rhythm. Long-term echocardiogram should be followed up which is not available on the weekend. Troponins were elevated but only slightly and will be trended to assure they peaked and began to trend downward with the patient's respiratory suppression now resolved patient is awake with normal respiration but he does appear obese with probable chronic sleep apnea. He denies any significant alcohol use. Denies any previous episodes of atrial fibrillation and is concerned about his heart. He is anxious because of his acute presentation as I get out of control of the situation with his drug use. (3) Elevated troponin level not due to acute coronary syndrome: Start date: 06/28/24 Status: Acute Assessment and plan: This is most likely secondary and not an acute coronary syndrome. Patient is not on aspirin and will not be initiated on heparin but is on DVT prophylaxis. Trend troponins and if worsening consider keeping patient for echocardiogram and consider treating more aggressively especially if there are EKG changes. EKG was sinus tachycardia. Continue IV patient be slightly dehydrated upon admission. (4) Acute dehydration: Start date: 06/28/24 Status: Acute Assessment and plan: Continue IV hydration monitor labs. Patient is still having sinus tachycardia. (5) Opioid overdose: Start date: 06/28/24 Status: Acute Assessment and plan: Patient at least admits to using Percocet but does snort cocaine and may have other drugs on board. Drug screens were sent but will not be available immediately. He has not required Narcan at this time. Follow-up VBG. History of Present Illness History of Present Illness Chief Complaint: Found unresponsive by . N arrative: This is a 43-year-old male patient who has a history of polysubstance abuse who was found by his neck on the couch and was unarousable even with firm tactile stimulation. She called EMS and patient was transferred to the ED for evaluation. Patient did respond to Narcan and did receive several doses. His ED evaluation with imaging revealing bilateral pneumonia though the patient was not hypoxic and VBG did reveal slight respiratory failure with CO2 slightly up. This may have been secondary to sedation with drug use with patient urine drug screen positive for cocaine and but not opiates with fentanyl and xylazine screens as well as oxycodone screens sent. Patient does admit to using Percocet. He is obese and does appear to have sleep apnea though this does not appear to be treated. He has no history of cardiac disease though he did have slight elevation in troponins upon this admission. He denies any chest pain or shortness of breath. He was anxious at the time of my exam and stated that he was stopping using this stuff realizing that street drugs may have mixtures of which he is unaware. The patient was admitted for treatment of his pneumonia and for gentle hydration as well as observation with continuous capnography with pulse oximeter because of his possible opioid overdose. In the ED he was tachycardic with atrial fibrillation then rate controlled without treatment and converted to sinus rhythm with tachycardia at the time I saw him. His troponin was slightly elevated and still slightly rising which will be trended. This does not appear to be acute coronary syndrome and patient will be observed closely. He does not have a history of non-STEMI. He is a full code. Review of Systems Narrative: 13 point review of systems otherwise unrevealing or stable. [facility] All Active Problems (Updated 06/29/24 @ 06:52 by Umesh Cunningham) Sepsis (Acute) Overdose (Acute) Pneumonia (Acute) Acute hypoxic respiratory failure (Acute) Opioid overdose (Acute) Acute dehydration (Acute) Elevated troponin level not due to acute coronary syndrome (Acute) Atrial fibrillation with controlled ventricular rate (Acute) Pneumonia (Acute) Medical History (Updated 06/29/24 @ 06:52 by Umesh Cunningham) No active medical problems Surgical History No significant past surgical history Social History Smoking/Tobacco Use Status: Current every day Tobacco Type: cigarettes Smoking risk assessment performed?: Yes Alcohol Intake: never Drug use: Daily Substance use type: painkillers Details: pt states only uses percocet Housing: apartment Do you feel safe at home: Yes Do you feel safe in your relationship?: Yes Meds Allergies and Home Medications Allergies Allergy/AdvReac Type Severity Reaction Status Date / Time No Known Allergies Allergy Unverified 06/28/24 20:32 Home Medications ?Medication ?Instructions ?Recorded ?Confirmed ?Type Unknown [No Known Home Meds] 06/28/24 06/28/24 History Exam Narrative Exam Narrative: General: Patient appears appropriate for age, moderately obese covered with tattoos. He is anxious alert and oriented to person place and time. He does have slightly slurred speech and appears slightly drowsy but sitting at the edge of the bed completely alert. HEENT: Normocephalic, eyes with pupils equal reactive light symmetric, extraocular move intact and sclera anicteric. Oropharynx with slightly dry mucosa. Neck: Supple without JVD. Neck: Normal posture without CVA tenderness. Lungs: Fair aeration and clear to auscultation and percussion. No focalizing rales or rhonchi. Normal vesicular breath sounds. Heart: Tachycardic rate with a regular rhythm. No murmurs gallops appreciated. Abdomen: Obese contour, soft and nontender to palpation with no palpable hepatosplenomegaly. Bowel sounds positive all quadrants. Genitalia/rectal: Exam deferred Extremity: No clubbing, cyanosis or pitting edema. Good capillary refill. Neuro: Cranial nerve II to XII grossly intact, no focal motor deficits. No tremor. Psych: Anxious with normal mood. No abnormal thought processes. Remote and recent memory appear grossly intact. Results Imaging Imaging Studies: Exam: CTA Chest With Contrast Exam date and time: 06/28/2024 10:08 PM Age: 43 years old Clinical indication: Other: Hypoxia, tachycardia afib, +dimer COMPARISON: CR XR CHEST 2V PA LATERAL 06/28/2024 9:51 PM FINDINGS: Pulmonary arteries: Normal. No pulmonary emboli. Aorta: Unremarkable. No aortic aneurysm. No aortic dissection. Celiac trunk and mesenteric arteries: Enlarged 1.2 cm celiac axis lymph node. Lungs: There is extensive diffuse bilateral infectious bronchiolitis and bronchopneumonia. Pleural spaces: Unremarkable. No pneumothorax. No pleural effusion. Heart: Unremarkable. No pericardial effusion. Esophagus: Unremarkable. Lymph nodes: See Celiac trunk and mesenteric arteries finding. Bones/joints: Unremarkable. No acute fracture. Soft tissues: Unremarkable. IMPRESSION: 1. There is extensive diffuse bilateral infectious bronchiolitis and bronchopneumonia. 2. Enlarged 1.2 cm celiac axis lymph node. Addendum created by Jose Narvaez MD on 06/28/2024 11:30:59 PM EST: In retrospect, after reviewing the chest CT, there are some subtle areas on the chest radiograph which demonstrates some indistinctness of the normal pulmonary vasculature, related to infectious bronchiolitis. Initial report created on 06/28/2024 11:20:16 PM EST: PROCEDURE INFORMATION: Exam: XR Chest Exam date and time: 06/28/2024 9:51 PM Age: 43 years old Clinical indication: Other: Afib TECHNIQUE: Imaging protocol: Radiologic exam of the chest. Views: 2 views. COMPARISON: No relevant prior studies available. FINDINGS: Lungs: Low lung volumes. Lungs are clear. Pleural spaces: Unremarkable. No pleural effusion. No pneumothorax. Heart/Mediastinum: Unremarkable. No cardiomegaly. Bones/joints: Unremarkable. IMPRESSION: No acute findings. Labs 06/28/24 20:33 06/28/24 20:33 Labs: Laboratory Results - last 24 hr 06/28/24 06/28/24 06/28/24 20:33 20:33 20:33 WBC 24.99 H RBC 5.13 Hgb 14.6 Hct 45.2 MCV 88 MCH 28.5 MCHC 32.3 RDW 14.4 H Plt Count 293 MPV 10.0 Immature Gran % 0.0 Neutrophils % 86.0 Band Neutrophils % 2 Lymphocytes % 9.0 Monocytes % 3.0 Eosinophils % 0.0 Basophils % 0.0 Nucleated RBC % 0.0 Absolute Neutrophils 21.99 H Absolute Lymphocytes 2.25 Absolute Monocytes 0.75 Absolute Eosinophils 0.00 Absolute Basophils 0.00 RBC Morphology Normal PT 10.3 INR 1.0 APTT 29.6 D-Dimer 536 H VBG pH 7.25 L VBG pCO2 59 H VBG pO2 21 VBG HCO3 26 VBG Total CO2 24 VBG O2 Saturation 33 VBG Base Excess -2 Sodium 145 Potassium 5.3 H Chloride 107 Carbon Dioxide 28.6 Anion Gap 9.4 BUN 16 Creatinine 1.5 H Est GFR (CKD-EPI 2020) 59.61 Glucose 132 H Calcium 9.0 Total Bilirubin 0.13 L AST 25 ALT 44 Alkaline Phosphatase 157 H Troponin I 41 Cancelled NT-Pro-B Natriuret Pep 119 Cancelled Total Protein 7.8 Albumin 3.5 TSH 1.77 Urine Opiates Screen Ur Barbiturates Screen Ur Tricyclics Screen Ur Amphetamines Screen U Benzodiazepines Scrn Urine Cocaine Screen Ur THC Screen 06/28/24 06/28/24 06/28/24 20:33 20:57 21:59 WBC RBC Hgb Hct MCV MCH MCHC RDW Plt Count MPV Immature Gran % Neutrophils % Band Neutrophils % Lymphocytes % Monocytes % Eosinophils % Basophils % Nucleated RBC % Absolute Neutrophils Absolute Lymphocytes Absolute Monocytes Absolute Eosinophils Absolute Basophils RBC Morphology PT INR APTT D-Dimer VBG pH VBG pCO2 VBG pO2 VBG HCO3 VBG Total CO2 VBG O2 Saturation VBG Base Excess Sodium Potassium Chloride Carbon Dioxide Anion Gap BUN Creatinine Est GFR (CKD-EPI 2020) Glucose Calcium Total Bilirubin AST ALT Alkaline Phosphatase Troponin I 105 H* NT-Pro-B Natriuret Pep Total Protein Albumin TSH Cancelled Urine Opiates Screen Negative Ur Barbiturates Screen Negative Ur Tricyclics Screen Negative Ur Amphetamines Screen Negative U Benzodiazepines Scrn Positive A Urine Cocaine Screen Positive A Ur THC Screen Positive A Last Vital Signs Temp 36.6 C 06/28/24 20:27 Pulse 94 H 06/28/24 23:15 Resp 20 06/28/24 23:29 BP 112/61 06/28/24 23:29 Pulse Ox 95 06/28/24 23:29 Time Spent Time spent with Patient: >75 minutes Time was spent: preparing to see the patient(eg.review tests), obtaining and/or reviewing separately otained hiistory, ordering medications,tests, procedures, indepentently interpreting results, counseling the patient and care coordination
[2024-06-28] MEDS: Normal Saline 1,000 ML 1000 ML IV (23:51)
[2024-06-28] MEDS: cefTRIAXone 1 GM/50 ML BAG IVPB (23:52)
[2024-06-28 23:56] LABS: Magnesium 2.1 mg/dL (1.8-2.4)
[2024-06-29] VITALS (18 sets, daily range): BP systolic 96–196; BP diastolic 56–164; PULSE 90–105; RESP 2–23; TEMP 37.2–38.9; O2SAT 90–96
[2024-06-29 00:04] LABS: Lactate 1.7 mmol/L (0.6-1.4)
[2024-06-29 00:06] LABS: Troponin I 191 ng/L (<or=76)
[2024-06-29] MEDS: AZITHROMYCIN 500 MG in Normal Saline 250 ML 250 MG IVPB (00:35)
[2024-06-29 00:52] LABS: COVID-19 PCR Negative (Negative); Influenza A PCR Negative (Negative); Influenza B PCR Negative (Negative); RSV PCR Negative (Negative)
[2024-06-29 00:54] LABS: Source Nasopharynx
--- NOTE | 2024-06-29 01:31 | W.PC.ACHO ---
Registration Status: Primary Language: Preferred Language: ED Information & Data Chief Complaint OD/Poison 06/28/24 23:03 Triage Note pt BIBA, was found 06/28/24 20:27 unresponsive, 8mg narcan and woke up. Pt states doesn't know what he took. reported to EMS took 1 percocet hours ago. A&Ox4 now. Medical / Surgical History (Last Reviewed 05/04/23 @ 04:34 by Gisselle Josue MD) No active medical problems (Last Reviewed 05/04/23 @ 04:34 by Gisselle Josue MD) No significant past surgical history Most Recent Vital Signs Temperature 36.6 C 06/28/24 20:27 Temperature Source Temporal Artery Scan 06/28/24 20:27 Pulse 92 H 06/29/24 01:01 Pulse 104 H 06/29/24 01:10 Respiratory Rate 22 06/29/24 01:10 Respiratory Effort Normal, Non-Labored 06/28/24 23:29 Respiratory Depth Normal 06/28/24 23:29 Respiratory Pattern Normal 06/28/24 23:29 Blood Pressure 196/164 H 06/29/24 01:01 Blood Pressure Mean 174 06/29/24 01:01 Blood Pressure Position Supine 06/28/24 23:29 Pulse Oximetry 95 06/29/24 01:10 Respiratory End-tidal CO2 13 06/29/24 01:10 Oxygen Delivery Method Nasal Cannula 06/28/24 23:29 Oxygen Flow Rate 3 06/28/24 23:29 Pain Level 0 06/28/24 20:27 Comment 4L NC 06/28/24 23:15 Allergies No Known Allergies Allergy (Unverified 06/28/24 20:32) Precautions Isolation Standard precaution 06/28/24 20:32 Active Medications Generic Name Dose Route Start Last Admin Trade Name Freq PRN Reason Stop Dose Admin Sodium Chloride 50 ml 06/28/24 22:30 06/28/24 22:24 Normal Saline - Diluent 50 Ml Vial IJ 50 ml .FOR DI USE ANDREA Administration IV IV Catheter Type [Left Peripheral IV Antecubital] IV Catheter Type [Right Upper Peripheral IV arm] IV Catheter Gauge [Left 18 Antecubital] IV Catheter Gauge [Right Upper 18 arm] Diet Orders Category Date Time Status Regular/Normal [DIET] Nutrition 06/29/24 Breakfast Active Diagnostics 12/03/1506/29/24 06/29/24 Range/Units 05:35 01:19 00:28 WBC Pending (4.4-10.8) 10^3/uL RBC Pending (4.36-5.78) 10^6/uL Hgb Pending (13.5-17.5) g/dL Hct Pending (40.0-50.0) % MCV Pending (80-95) fL MCH Pending (27.0-33.0) pg MCHC Pending (32.0-36.0) % RDW Pending (11.8-14.1) % Plt Count Pending (130-400) 10^3/uL MPV Pending (8.0-11.0) fL Immature Gran % % Neutrophils % % Band Neutrophils % % Lymphocytes % % Monocytes % % Eosinophils % % Basophils % % Nucleated RBC % (0.0-0.3) % Absolute Neutrophils (1.2-6.7) 10^3/uL Absolute Lymphocytes (1.2-3.4) 10^3/uL Absolute Monocytes (0.1-0.8) 10^3/uL Absolute Eosinophils (0.0-0.7) 10^3/uL Absolute Basophils (0.0-0.2) 10^3/uL RBC Morphology PT (9.1-11.1) sec INR (0.9-1.1) APTT (23.6-32.8) sec D-Dimer (<500) ng/mlFEU VBG pH Pending (7.31-7.41) VBG pCO2 Pending (41-51) mmHg VBG pO2 Pending mmHg VBG HCO3 Pending (23-28) mmol/L VBG Total CO2 Pending (24-29) mmol/L VBG O2 Saturation Pending % VBG Base Excess Pending (-2-3) mmol/L VBG Lactate (0.6-1.4) mmol/L Sodium Pending (136-145) mmol/L Potassium Pending (3.5-5.1) mmol/L Chloride Pending (98-107) mmol/L Carbon Dioxide Pending (21.0-32.0) mmol/L Anion Gap Pending (3-11) mmol/L BUN Pending (7-18) mg/dL Creatinine Pending (0.70-1.30) mg/dL Est GFR (CKD-EPI 2020) Pending (mL/min/1.73m2) Glucose Pending (74-106) mg/dL Calcium Pending (8.5-10.1) mg/dL Magnesium Pending (1.8-2.4) mg/dL Total Bilirubin Pending (0.2-1.0) mg/dL AST Pending (15-37) U/L ALT Pending (16-63) U/L Alkaline Phosphatase Pending (46-116) U/L Troponin I Pending (<or=76) ng/L NT-Pro-B Natriuret Pep (<300) pg/mL Total Protein Pending (6.4-8.2) g/dL Albumin Pending (3.4-5.0) g/dL TSH (0.36-3.74) uIU/mL Urine Opiates Screen (Negative) Ur Oxycodone Screen Pending Urine Fentanyl Screen Pending Ur Barbiturates Screen (Negative) Ur Tricyclics Screen (Negative) Ur Amphetamines Screen (Negative) U Benzodiazepines Scrn (Negative) Urine Cocaine Screen (Negative) Ur THC Screen (Negative) Urine Xylazine Pending COVID-19 Source SARS-CoV-2 (PCR) (Negative) Influenza Type A (PCR) (Negative) Influenza Type B (PCR) (Negative) RSV (PCR) (Negative) 06/29/24 06/28/24 06/28/24 Range/Units 00:11 23:57 23:41 WBC (4.4-10.8) 10^3/uL RBC (4.36-5.78) 10^6/uL Hgb (13.5-17.5) g/dL Hct (40.0-50.0) % MCV (80-95) fL MCH (27.0-33.0) pg MCHC (32.0-36.0) % RDW (11.8-14.1) % Plt Count (130-400) 10^3/uL MPV (8.0-11.0) fL Immature Gran % % Neutrophils % % Band Neutrophils % % Lymphocytes % % Monocytes % % Eosinophils % % Basophils % % Nucleated RBC % (0.0-0.3) % Absolute Neutrophils (1.2-6.7) 10^3/uL Absolute Lymphocytes (1.2-3.4) 10^3/uL Absolute Monocytes (0.1-0.8) 10^3/uL Absolute Eosinophils (0.0-0.7) 10^3/uL Absolute Basophils (0.0-0.2) 10^3/uL RBC Morphology PT (9.1-11.1) sec INR (0.9-1.1) APTT (23.6-32.8) sec D-Dimer (<500) ng/mlFEU VBG pH (7.31-7.41) VBG pCO2 (41-51) mmHg VBG pO2 mmHg VBG HCO3 (23-28) mmol/L VBG Total CO2 (24-29) mmol/L VBG O2 Saturation % VBG Base Excess (-2-3) mmol/L VBG Lactate 1.7 H (0.6-1.4) mmol/L Sodium (136-145) mmol/L Potassium (3.5-5.1) mmol/L Chloride (98-107) mmol/L Carbon Dioxide (21.0-32.0) mmol/L Anion Gap (3-11) mmol/L BUN (7-18) mg/dL Creatinine (0.70-1.30) mg/dL Est GFR (CKD-EPI 2020) (mL/min/1.73m2) Glucose (74-106) mg/dL Calcium (8.5-10.1) mg/dL Magnesium 2.1 (1.8-2.4) mg/dL Total Bilirubin (0.2-1.0) mg/dL AST (15-37) U/L ALT (16-63) U/L Alkaline Phosphatase (46-116) U/L Troponin I 191 H* (<or=76) ng/L NT-Pro-B Natriuret Pep (<300) pg/mL Total Protein (6.4-8.2) g/dL Albumin (3.4-5.0) g/dL TSH (0.36-3.74) uIU/mL Urine Opiates Screen (Negative) Ur Oxycodone Screen Urine Fentanyl Screen Ur Barbiturates Screen (Negative) Ur Tricyclics Screen (Negative) Ur Amphetamines Screen (Negative) U Benzodiazepines Scrn (Negative) Urine Cocaine Screen (Negative) Ur THC Screen (Negative) Urine Xylazine COVID-19 Source Nasopharynx SARS-CoV-2 (PCR) Negative (Negative) Influenza Type A (PCR) Negative (Negative) Influenza Type B (PCR) Negative (Negative) RSV (PCR) Negative (Negative) 06/28/24 06/28/24 06/28/24 Range/Units 21:59 20:57 20:33 WBC (4.4-10.8) 10^3/uL RBC (4.36-5.78) 10^6/uL Hgb (13.5-17.5) g/dL Hct (40.0-50.0) % MCV (80-95) fL MCH (27.0-33.0) pg MCHC (32.0-36.0) % RDW (11.8-14.1) % Plt Count (130-400) 10^3/uL MPV (8.0-11.0) fL Immature Gran % % Neutrophils % % Band Neutrophils % % Lymphocytes % % Monocytes % % Eosinophils % % Basophils % % Nucleated RBC % (0.0-0.3) % Absolute Neutrophils (1.2-6.7) 10^3/uL Absolute Lymphocytes (1.2-3.4) 10^3/uL Absolute Monocytes (0.1-0.8) 10^3/uL Absolute Eosinophils (0.0-0.7) 10^3/uL Absolute Basophils (0.0-0.2) 10^3/uL RBC Morphology PT (9.1-11.1) sec INR (0.9-1.1) APTT (23.6-32.8) sec D-Dimer (<500) ng/mlFEU VBG pH (7.31-7.41) VBG pCO2 (41-51) mmHg VBG pO2 mmHg VBG HCO3 (23-28) mmol/L VBG Total CO2 (24-29) mmol/L VBG O2 Saturation % VBG Base Excess (-2-3) mmol/L VBG Lactate (0.6-1.4) mmol/L Sodium (136-145) mmol/L Potassium (3.5-5.1) mmol/L Chloride (98-107) mmol/L Carbon Dioxide (21.0-32.0) mmol/L Anion Gap (3-11) mmol/L BUN (7-18) mg/dL Creatinine (0.70-1.30) mg/dL Est GFR (CKD-EPI 2020) (mL/min/1.73m2) Glucose (74-106) mg/dL Calcium (8.5-10.1) mg/dL Magnesium (1.8-2.4) mg/dL Total Bilirubin (0.2-1.0) mg/dL AST (15-37) U/L ALT (16-63) U/L Alkaline Phosphatase (46-116) U/L Troponin I 105 H* (<or=76) ng/L NT-Pro-B Natriuret Pep (<300) pg/mL Total Protein (6.4-8.2) g/dL Albumin (3.4-5.0) g/dL TSH Cancelled (0.36-3.74) uIU/mL Urine Opiates Screen Negative (Negative) Ur Oxycodone Screen Urine Fentanyl Screen Ur Barbiturates Screen Negative (Negative) Ur Tricyclics Screen Negative (Negative) Ur Amphetamines Screen Negative (Negative) U Benzodiazepines Scrn Positive A (Negative) Urine Cocaine Screen Positive A (Negative) Ur THC Screen Positive A (Negative) Urine Xylazine COVID-19 Source SARS-CoV-2 (PCR) (Negative) Influenza Type A (PCR) (Negative) Influenza Type B (PCR) (Negative) RSV (PCR) (Negative) 06/28/24 06/28/24 06/28/24 Range/Units 20:33 20:33 20:33 WBC 24.99 H (4.4-10.8) 10^3/uL RBC 5.13 (4.36-5.78) 10^6/uL Hgb 14.6 (13.5-17.5) g/dL Hct 45.2 (40.0-50.0) % MCV 88 (80-95) fL MCH 28.5 (27.0-33.0) pg MCHC 32.3 (32.0-36.0) % RDW 14.4 H (11.8-14.1) % Plt Count 293 (130-400) 10^3/uL MPV 10.0 (8.0-11.0) fL Immature Gran % 0.0 % Neutrophils % 86.0 % Band Neutrophils % 2 % Lymphocytes % 9.0 % Monocytes % 3.0 % Eosinophils % 0.0 % Basophils % 0.0 % Nucleated RBC % 0.0 (0.0-0.3) % Absolute Neutrophils 21.99 H (1.2-6.7) 10^3/uL Absolute Lymphocytes 2.25 (1.2-3.4) 10^3/uL Absolute Monocytes 0.75 (0.1-0.8) 10^3/uL Absolute Eosinophils 0.00 (0.0-0.7) 10^3/uL Absolute Basophils 0.00 (0.0-0.2) 10^3/uL RBC Morphology Normal PT 10.3 (9.1-11.1) sec INR 1.0 (0.9-1.1) APTT 29.6 (23.6-32.8) sec D-Dimer 536 H (<500) ng/mlFEU VBG pH 7.25 L (7.31-7.41) VBG pCO2 59 H (41-51) mmHg VBG pO2 21 mmHg VBG HCO3 26 (23-28) mmol/L VBG Total CO2 24 (24-29) mmol/L VBG O2 Saturation 33 % VBG Base Excess -2 (-2-3) mmol/L VBG Lactate (0.6-1.4) mmol/L Sodium 145 (136-145) mmol/L Potassium 5.3 H (3.5-5.1) mmol/L Chloride 107 (98-107) mmol/L Carbon Dioxide 28.6 (21.0-32.0) mmol/L Anion Gap 9.4 (3-11) mmol/L BUN 16 (7-18) mg/dL Creatinine 1.5 H (0.70-1.30) mg/dL Est GFR (CKD-EPI 2020) 59.61 (mL/min/1.73m2) Glucose 132 H (74-106) mg/dL Calcium 9.0 (8.5-10.1) mg/dL Magnesium (1.8-2.4) mg/dL Total Bilirubin 0.13 L (0.2-1.0) mg/dL AST 25 (15-37) U/L ALT 44 (16-63) U/L Alkaline Phosphatase 157 H (46-116) U/L Troponin I Cancelled 41 (<or=76) ng/L NT-Pro-B Natriuret Pep Cancelled 119 (<300) pg/mL Total Protein 7.8 (6.4-8.2) g/dL Albumin 3.5 (3.4-5.0) g/dL TSH 1.77 (0.36-3.74) uIU/mL Urine Opiates Screen (Negative) Ur Oxycodone Screen Urine Fentanyl Screen Ur Barbiturates Screen (Negative) Ur Tricyclics Screen (Negative) Ur Amphetamines Screen (Negative) U Benzodiazepines Scrn (Negative) Urine Cocaine Screen (Negative) Ur THC Screen (Negative) Urine Xylazine COVID-19 Source SARS-CoV-2 (PCR) (Negative) Influenza Type A (PCR) (Negative) Influenza Type B (PCR) (Negative) RSV (PCR) (Negative) Intake and Output - 24 Hour Total 06/28/24 20:22 thru 06/29/24 00:25 Intake Total 60 Balance 60 Weight 123.6 kg Intake: IV 60 Falls Risk Assessment History of Falls No History 06/28/24 20:34 Contributing Factors No Factors 06/28/24 20:34 Ambulatory Aids Independent 06/28/24 20:34 Tubes/Lines None 06/28/24 20:34 Gait Evaluation No gait disturbance 06/28/24 20:34 Cognition No cognitive impairment 06/28/24 20:34 Fall Total Score 0 06/28/24 20:34 Level of Risk Standard/Low Risk 06/28/24 20:34 Problems (Last Reviewed 05/04/23 @ 04:34 by Gisselle Josue MD) Sepsis (Acute) Overdose (Acute) Non-ST elevation LA (NSTEMI) (Acute) A-fib (Chronic) Pneumonia (Acute) Acute hypoxic respiratory failure (Acute) Opioid overdose (Acute) Acute dehydration (Acute) Elevated troponin level not due to acute coronary syndrome (Acute) Atrial fibrillation with controlled ventricular rate (Acute) Pneumonia (Acute) Notes 06/28/24 21:27 Nursing Notes by Reva Jay Nursing Note: Pt SpO2 ~90% on RA. Placed on 3L NC. Initialized on 06/28/24 21:27 - END OF NOTE v v v v v v v v v Sending and/or Receiving Nurses: Please use comment section below to note any information pertinent to the patient hand-off not included above. Information / Comments:no questions Report received from:Reva
[2024-06-29] MEDS: Enoxaparin 40 MG/0.4 ML SYR SC (02:18)
[2024-06-29] MEDS: Normal Saline Flush 10 ML SYR (02:18)
[2024-06-29 02:21] LABS: Troponin I 195 ng/L (<or=76)
[2024-06-29] MEDS: Albuterol 2.5 MG/3 ML INH SOLN VIAL UPD (02:40)
[2024-06-29] MEDS: Acetaminophen 325 MG TAB PO (03:36)
[2024-06-29] MEDS: Normal Saline 1,000 ML 125 ML IV (03:37)
[2024-06-29 06:36] LABS: HCT 37.5 % (40.0-50.0); HGB 12.3 g/dL (13.5-17.5); MCH 28.3 pg (27.0-33.0); MCHC 32.8 % (32.0-36.0); MCV 86 fL (80-95); MPV 10.2 fL (8.0-11.0); Platelet Count 237 10^3/uL (130-400); RBC 4.35 10^6/uL (4.36-5.78); RDW 14.6 % (11.8-14.1); RDW-SD 46.5 fL
[2024-06-29 06:37] LABS: BE (Venous) -2 mmol/L (-2-3); HCO3 (Venous) 24 mmol/L (23-28); O2 Sat (Venous) 92 %; TCO2 (Venous) 22 mmol/L (24-29); pCO2 (Venous) 42 mmHg (41-51); pH (Venous) 7.36 (7.31-7.41); pO2 (Venous) 61 mmHg
[2024-06-29 06:42] LABS: WBC 26.96 10^3/uL (4.4-10.8)
[2024-06-29 06:56] LABS: ALT 34 U/L (16-63); AST 19 U/L (15-37); Albumin 2.9 g/dL (3.4-5.0); Alkaline Phosphatase 129 U/L (46-116); Anion Gap 9.5 mmol/L (3-11); BUN 12 mg/dL (7-18); Bilirubin, Total 0.19 mg/dL (0.2-1.0); CO2 25.5 mmol/L (21.0-32.0); CREATININE 1.1 mg/dL (0.70-1.30); Calcium 8.2 mg/dL (8.5-10.1); Chloride 104 mmol/L (98-107); Estimated GFR 86.49 (mL/min/1.73m2); Glucose 156 mg/dL (74-106); Magnesium 1.7 mg/dL (1.8-2.4); Potassium 3.9 mmol/L (3.5-5.1); Sodium 139 mmol/L (136-145); Total Protein 6.7 g/dL (6.4-8.2)
[2024-06-29 06:59] LABS: Troponin I 137 ng/L (<or=76)
[2024-06-29] MEDS: Normal Saline Flush 10 ML SYR IVP (08:33)
--- NOTE | 2024-06-29 09:11 | PDOC.CMIN ---
Date of service: 06/29/24 Time of Service: 09:12 Care Management Initial Assmt Initial Assessment Reason for Hospitalization: Pneumonia, opioid overdose, dehydration Functional Status/Living Situation Town of Residence: [place] Resides with: Spouse Natural Supports: , Olya Employment Status: Unemployed Instrumental Activities of Daily Living (ADLs): Independent Medications Medication Management: No Issues/Barriers identified Advance Directives Advance Directives: Do you have an Advance Directive: N 05/04/23 02:20 AD On File at [facility]: N 12/23/12 10:48 Date Asked 06/28/24 06/28/24 20:37 AD Date Reviewed COLST On File at [facility] No 06/28/24 20:37 COLST Date Scanned Code Status Resuscitation Status Full Code Insurance Coverage/Financial Issues Insurance: [facility] Care Team Visit Care Team Role Provider Type None None Primary Care Provider NON-[facility] STAFF PHYSICIAN Viki Allen MD Emergency Provider [facility] STAFF PHYSICIAN Umesh Cunningham Admit Provider NON-[facility] STAFF PHYSICIAN Attending Provider Discharge Potential Discharge Needs: PCP F/U Appt (will need stone planer provider referral) Anticipated Barriers to Discharge: None Identified Patient/Family Education Needs: Review discharge instructions, discuss Ask Me Three Transportation: Private vehicle Plan: Anticipate Saeid will return home once medically cleared. His will drive him home via private vehicle. He will follow up with the stone planer provider, and will follow his discharge plan of care. CM will continue to follow. PFSH All Active Problems (Updated 06/29/24 @ 06:52 by Umesh Cunningham) Sepsis (Acute) Overdose (Acute) Pneumonia (Acute) Acute hypoxic respiratory failure (Acute) Opioid overdose (Acute) Acute dehydration (Acute) Elevated troponin level not due to acute coronary syndrome (Acute) Atrial fibrillation with controlled ventricular rate (Acute) Pneumonia (Acute) Medical History (Updated 06/29/24 @ 06:52 by Umesh Cunningham) No active medical problems Surgical History No significant past surgical history Social History Smoking/Tobacco Use Status: Current every day Tobacco Type: cigarettes Smoking risk assessment performed?: Yes Alcohol Intake: never Drug use: Daily Substance use type: painkillers Details: pt states only uses percocet Housing: apartment Do you feel safe at home: Yes Do you feel safe in your relationship?: Yes SDOH(Care Management) Screening Will the Patient Participate in the Screening?: Yes Do you worry about having a steady place to live?: no Problems where you live: no known problems In the past 12 months, have you had to go without electric, gas, oil or water in your home?: no Have you or anyone in your house had to go without enough food to eat?: no Has lack of transportation kept you from medical appointments or from doing things needed for daily living?: no Has anyone in your support network made you feel unsafe for any reason?: no
--- NOTE | 2024-06-29 10:53 | DSE_ITS ---
Date of service: 06/29/24 Time of Service: 10:53 DS: Diagnosis Discharge Diagnosis (1) Pneumonia: Status: Acute (2) Atrial fibrillation with controlled ventricular rate: Status: Acute (3) Elevated troponin level not due to acute coronary syndrome: Status: Acute (4) Acute dehydration: Status: Acute (5) Opioid overdose: Status: Acute Discharge Plan Disposition Patient Disposition: Home Condition: Stable Discharge Details Reason For Visit: Pneumonia, Opioid overdose, Dehydration Admit Date/Time: 06/28/24 23:58 Admit Provider: Umesh Cunningham Attending Provider: Umesh Cunningham Primary Care Provider: None,None Hospital Course Hospital Course: This is a 43-year-old male patient presented to the emergency department after an opioid overdose with respiratory suppression. He did require Narcan. His workup in the emergency department did show bilateral pneumonia. He was started on Rocephin and azithromycin and admitted to the medical surgical unit for further monitoring. Overnight he rested comfortably he was weaned off oxygen. Apparently overnight while sleeping he did desat but this was thought to be due to a combination of obesity and suspected sleep apnea. In the morning he was awake alert oriented and requesting discharge to home. I did go over his vital signs that did show a soft blood pressure in the 90s and 100 systolic and the fact that his white count did increase overnight. He has not been on antibiotics for 24 hours so this does not represent a treatment failure but again I did emphasize that we cannot for sure say that he will continue improving if he is down stepped to oral antibiotics at this time. He does verbalize understanding and still is requesting discharge to home. Now that he is weaned off oxygen and asymptomatic with no dizziness chest pain shortness of breath or presyncope/syncope and eating and drinking I think it is reasonable to discharge him at his request to trial outpatient treatment. He will be discharged on Augmentin 875 mg bid for 5 days and will be prescribed an albuterol inhaler to use for wheezing cough or shortness of breath. He was advised to avoid illicit substances and smoking. He does have a female occupational health technician in the room with him and both are in agreement with discharge plan and understand to return for evidence of worsening symptoms. Discharge discussed with Dr. Foote. Home Meds and New Rx's Prescriptions: New amoxicillin-pot clavulanate 875-125 mg tablet 1 tab PO BID Qty: 10 0RF albuterol sulfate [Ventolin HFA] 90 mcg/actuation HFA aerosol inhaler 2 puff inhalation Q6H PRNQty: 8.5 0RF Discharge Instructions Instructions: Aspiration pneumonia, Smoking: Not Just Harmful to Your Lungs and Heart, Quitting smoking Additional Instructions: finish antibiotics as prescribed even if you feel better. use inhaler, 2 puffs 4 times daily if needed for cough, wheeze or shortness of breath. return for new or worsening symptoms stop smoking, see resources provided stop using medication or substances not prescribed by your doctor. you no longer require oxygen but your white count has not started improving yet, we offered to keep you hospitalized to continue to monitor for ongoing improvement to the treatment but you declined. please return for new or worsening symptoms. Stand Alone Forms: Nursing Discharge Form Referrals: None,None [Primary Care Provider] - (Please call tomorrow morning to make a follow up appointment for with in 1 to 2 weeks. ) Activity:: Activity as Tolerated Equipment/Supplies:: No Equipment Needed Diet:: As Tolerated Discharge Orders Discharge Orders: Discharge Order (Routine); Ordered 06/29/24 Ordered By: Wanda Pemberton DS: Summary Time Spent with Patient providing and/or coordinating discharge services: Less than 30 minutes Status at Discharge Functional status at discharge: independent ambulation Overall status at discharge: patient is progressing back to baseline Mental Status: mental status grossly normal Speech and Movement: speech and movement normal Mood: congruent mood Affect: normal affect Quality:SDOH Health Related Social Needs: No Data to Display Exam Narrative Exam Narrative: Obese male of stated age in no acute distress lying quietly on his bed. Head is atraumatic eyes nonicteric noninjected face is flushed oral mucosa is moist neck with full range of motion respirations are even and unlabored diminished throughout no wheezing oxygenating 96 on room air cardiovascular regular rate and rhythm pulse in the 80s to 90s abdomen is obese soft nontender he moves all extremities neurologic he is awake alert oriented no focal deficits psychiatric appropriate mood and affect Psych Mental Status: mental status grossly normal Speech and Movement: speech and movement normal Mood: congruent mood Affect: normal affect DS: Data Vitals/I&O Vitals and I&O: Vital Signs Temperature 37.2 C 06/29/24 07:19 Temperature Source Temporal Artery Scan 06/29/24 07:19 Pulse 90 06/29/24 07:19 Pulse Rhythm Regular 06/29/24 01:32 Pulse 104 H 06/29/24 01:10 Respiratory Rate 18 06/29/24 02:46 Respiratory Effort Normal, Non-Labored 06/29/24 01:32 Respiratory Depth Normal 06/29/24 01:32 Respiratory Pattern Normal 06/29/24 01:32 Blood Pressure 96/62 L 06/29/24 07:19 Blood Pressure Mean 174 06/29/24 01:01 Blood Pressure Position Supine 06/28/24 23:29 Pulse Oximetry 96 06/29/24 07:19 Respiratory End-tidal CO2 13 06/29/24 01:10 Oxygen Delivery Method Room Air 06/29/24 07:19 Oxygen Flow Rate 0 06/29/24 07:19 Pain Level 0 06/29/24 08:37 Comment 4L NC 06/28/24 23:15 Intake & Output 06/28/24 06/28/24 06/29/24 11:59 23:59 11:59 Intake Total 3260 / 3260 Output Total 1250 / 1250 Balance 2009 Weight 123.6 kg 129.018 kg Intake: IV 1300 / 1300 Oral 1959 / 1959 Output: Urine 1250 / 1250 Other: Urine Color Pale Urine Appearance Clear Urine Odor None Data Completed and Pending Labs on day of discharge: Labs from last 24 hours 06/29/24 06/29/24 06/29/24 06:29 01:49 00:28 WBC 26.96 H* RBC 4.35 L Hgb 12.3 L D Hct 37.5 L MCV 86 MCH 28.3 MCHC 32.8 RDW 14.6 H Plt Count 237 MPV 10.2 Immature Gran % Neutrophils % Band Neutrophils % Lymphocytes % Monocytes % Eosinophils % Basophils % Nucleated RBC % Absolute Neutrophils Absolute Lymphocytes Absolute Monocytes Absolute Eosinophils Absolute Basophils RBC Morphology PT INR APTT D-Dimer VBG pH 7.36 VBG pCO2 42 VBG pO2 61 VBG HCO3 24 VBG Total CO2 22 L VBG O2 Saturation 92 VBG Base Excess -2 VBG Lactate Sodium 139 Potassium 3.9 D Chloride 104 Carbon Dioxide 25.5 Anion Gap 9.5 BUN 12 Creatinine 1.1 Est GFR (CKD-EPI 2020) 86.49 Glucose 156 H Calcium 8.2 L Magnesium 1.7 L Total Bilirubin 0.19 L AST 19 ALT 34 Alkaline Phosphatase 129 H Troponin I 137 H* 195 H* NT-Pro-B Natriuret Pep Total Protein 6.7 Albumin 2.9 L TSH Urine Opiates Screen Ur Oxycodone Screen Pending Urine Fentanyl Screen Pending Ur Barbiturates Screen Ur Tricyclics Screen Ur Amphetamines Screen U Benzodiazepines Scrn Urine Cocaine Screen Ur THC Screen Urine Xylazine Pending COVID-19 Source SARS-CoV-2 (PCR) Influenza Type A (PCR) Influenza Type B (PCR) RSV (PCR) 06/29/24 06/28/24 06/28/24 00:11 23:57 23:41 WBC RBC Hgb Hct MCV MCH MCHC RDW Plt Count MPV Immature Gran % Neutrophils % Band Neutrophils % Lymphocytes % Monocytes % Eosinophils % Basophils % Nucleated RBC % Absolute Neutrophils Absolute Lymphocytes Absolute Monocytes Absolute Eosinophils Absolute Basophils RBC Morphology PT INR APTT D-Dimer VBG pH VBG pCO2 VBG pO2 VBG HCO3 VBG Total CO2 VBG O2 Saturation VBG Base Excess VBG Lactate 1.7 H Sodium Potassium Chloride Carbon Dioxide Anion Gap BUN Creatinine Est GFR (CKD-EPI 2020) Glucose Calcium Magnesium 2.1 Total Bilirubin AST ALT Alkaline Phosphatase Troponin I 191 H* NT-Pro-B Natriuret Pep Total Protein Albumin TSH Urine Opiates Screen Ur Oxycodone Screen Urine Fentanyl Screen Ur Barbiturates Screen Ur Tricyclics Screen Ur Amphetamines Screen U Benzodiazepines Scrn Urine Cocaine Screen Ur THC Screen Urine Xylazine COVID-19 Source Nasopharynx SARS-CoV-2 (PCR) Negative Influenza Type A (PCR) Negative Influenza Type B (PCR) Negative RSV (PCR) Negative 06/28/24 06/28/24 06/28/24 21:59 20:57 20:33 WBC RBC Hgb Hct MCV MCH MCHC RDW Plt Count MPV Immature Gran % Neutrophils % Band Neutrophils % Lymphocytes % Monocytes % Eosinophils % Basophils % Nucleated RBC % Absolute Neutrophils Absolute Lymphocytes Absolute Monocytes Absolute Eosinophils Absolute Basophils RBC Morphology PT INR APTT D-Dimer VBG pH VBG pCO2 VBG pO2 VBG HCO3 VBG Total CO2 VBG O2 Saturation VBG Base Excess VBG Lactate Sodium Potassium Chloride Carbon Dioxide Anion Gap BUN Creatinine Est GFR (CKD-EPI 2020) Glucose Calcium Magnesium Total Bilirubin AST ALT Alkaline Phosphatase Troponin I 105 H* NT-Pro-B Natriuret Pep Total Protein Albumin TSH Cancelled Urine Opiates Screen Negative Ur Oxycodone Screen Urine Fentanyl Screen Ur Barbiturates Screen Negative Ur Tricyclics Screen Negative Ur Amphetamines Screen Negative U Benzodiazepines Scrn Positive A Urine Cocaine Screen Positive A Ur THC Screen Positive A Urine Xylazine COVID-19 Source SARS-CoV-2 (PCR) Influenza Type A (PCR) Influenza Type B (PCR) RSV (PCR) 06/28/24 06/28/24 06/28/24 20:33 20:33 20:33 WBC 24.99 H RBC 5.13 Hgb 14.6 Hct 45.2 MCV 88 MCH 28.5 MCHC 32.3 RDW 14.4 H Plt Count 293 MPV 10.0 Immature Gran % 0.0 Neutrophils % 86.0 Band Neutrophils % 2 Lymphocytes % 9.0 Monocytes % 3.0 Eosinophils % 0.0 Basophils % 0.0 Nucleated RBC % 0.0 Absolute Neutrophils 21.99 H Absolute Lymphocytes 2.25 Absolute Monocytes 0.75 Absolute Eosinophils 0.00 Absolute Basophils 0.00 RBC Morphology Normal PT 10.3 INR 1.0 APTT 29.6 D-Dimer 536 H VBG pH 7.25 L VBG pCO2 59 H VBG pO2 21 VBG HCO3 26 VBG Total CO2 24 VBG O2 Saturation 33 VBG Base Excess -2 VBG Lactate Sodium 145 Potassium 5.3 H Chloride 107 Carbon Dioxide 28.6 Anion Gap 9.4 BUN 16 Creatinine 1.5 H Est GFR (CKD-EPI 2020) 59.61 Glucose 132 H Calcium 9.0 Magnesium Total Bilirubin 0.13 L AST 25 ALT 44 Alkaline Phosphatase 157 H Troponin I Cancelled 41 NT-Pro-B Natriuret Pep Cancelled 119 Total Protein 7.8 Albumin 3.5 TSH 1.77 Urine Opiates Screen Ur Oxycodone Screen Urine Fentanyl Screen Ur Barbiturates Screen Ur Tricyclics Screen Ur Amphetamines Screen U Benzodiazepines Scrn Urine Cocaine Screen Ur THC Screen Urine Xylazine COVID-19 Source SARS-CoV-2 (PCR) Influenza Type A (PCR) Influenza Type B (PCR) RSV (PCR) PFSH All Active Problems (Updated 06/29/24 @ 06:52 by Umesh Cunningham) Sepsis (Acute) Overdose (Acute) Pneumonia (Acute) Acute hypoxic respiratory failure (Acute) Opioid overdose (Acute) Acute dehydration (Acute) Elevated troponin level not due to acute coronary syndrome (Acute) Atrial fibrillation with controlled ventricular rate (Acute) Pneumonia (Acute) Medical History (Updated 06/29/24 @ 06:52 by Umesh Cunningham) No active medical problems Surgical History No significant past surgical history Social History Smoking/Tobacco Use Status: Current every day Tobacco Type: cigarettes Smoking risk assessment performed?: Yes Alcohol Intake: never Drug use: Daily Substance use type: painkillers Details: pt states only uses percocet Housing: apartment Do you feel safe at home: Yes Do you feel safe in your relationship?: Yes Time Spent with Patient Time Spent with Patient: 45-69 minutes Time was spent: preparing to see the patient(eg.review tests), obtaining and/or reviewing separately otained hiistory, ordering medications,tests, procedures, indepentently interpreting results and counseling the patient
[2024-06-30 13:55] LABS: Xylazine, Confirmation Urine 620 ng/mL (<50)
[2024-07-01 11:28] LABS: Oxycodone Screen, U Negative ng/mL (Cutoff: 100)
[2024-07-02 10:01] LABS: Fentanyl Scr w/Rfx Confirm Positive ng/mL (<1)
[2024-07-02 12:03] LABS: Fentanyl Confirmation >40 ng/mL (<2); Norfentanyl Confirmation >200 ng/mL (<10)
== END 2024-06-29 12:13 | disposition home or self-care (01) | DRG 917 ==
LOC: ER 06-29 00:04 → MS 06-29 01:16
PROVIDERS: Admitting Provider Family Medicine; Emergency Provider Student in an Organized Health Care Education/Training Program; Visit Provider Family Medicine
DX: T40.2X1A Poisoning by other opioids, accidental (unintentional), initial encounter (principal); J18.9 Pneumonia, unspecified organism; J96.02 Acute respiratory failure with hypercapnia; Z68.41 Body mass index [BMI] 40.0-44.9, adult; I48.91 Unspecified atrial fibrillation; R74.8 Abnormal levels of other serum enzymes; E86.0 Dehydration; F14.90 Cocaine use, unspecified, uncomplicated; F11.10 Opioid abuse, uncomplicated; E66.9 Obesity, unspecified; G47.30 Sleep apnea, unspecified; F17.210 Nicotine dependence, cigarettes, uncomplicated; R40.4 Transient alteration of awareness; F19.10 Other psychoactive substance abuse, uncomplicated
CPT/HCPCS: 00123; 36415; 71275; 80053; 80307; 80354; 80375; 82805; 85027; 87637; 93005; 96365; 96367; 96375; 99285; J1650; 71046; 83605; 83735; 83880; 84443; 84484; 85025; 85379; 85610; 85730; 93010; 94640; 94760; 99239; J0456; J0696; J2310; J2405; J3490; J7613